=== PATIENT | male | born 1945 | race Caucasian/White ===

== ENCOUNTER 2019-07-29 21:54 | Emergency (ER) | payer SELFPAY ==
[~2019-07-29] VITALS: Ht 182.9 cm; Wt 110.0 kg
[2019-07-30 01:15] VITALS: BP 121/72
== END 2019-07-30 01:24 | disposition home or self-care (01) ==
LOC: ER 21:54
DX: S09.8XXA Other specified injuries of head, initial encounter (principal); F10.129 Alcohol abuse with intoxication, unspecified; F43.10 Post-traumatic stress disorder, unspecified; W01.0XXA Fall on same level from slipping, tripping and stumbling without subsequent striking against object, initial encounter; Y93.89 Activity, other specified; Y92.414 Local residential or business street as the place of occurrence of the external cause
CPT/HCPCS: 93005; 99284